=== PATIENT | female | born 1995 | race Caucasian/White ===

== ENCOUNTER → 2020-10-11 18:46 | Observation (INO) ==
[2020-10-11 18:23] LABS: Bacteria,Urine Few per hpf (None-Few); Bilirubin,Urine Negative (Negative); Blood,Urine Negative (Negative); Clarity,Urine Turbid (Clear); Color,Urine Yellow (Yellow); Glucose,Urine (UA) Normal (Normal); Ketones,Urine Negative (Negative); Leukocyte Esterase,Urine Moderate (Negative); Mucus,Urine Few per lpf (None-Few); Nitrite,Urine Negative (Negative); PH,Urine 6.5 pH Units (5.0-8.0); Protein,Urine 30 mg/dL (Neg-Trace); RBC,Urine 0-3 per hpf (0-3); Specific Gravity,Urine 1.024 (1.010-1.025); Squamous Epithelial Cell,Urine Moderate per hpf (None-Few)
== END | disposition home health service (06) ==
LOC: 1NENULAB
PROVIDERS: ADMIT Student in an Organized Health Care Education/Training Program; ATTEND Student in an Organized Health Care Education/Training Program

== ENCOUNTER 2022-04-04 03:48 | Inpatient (IN) ==
[2022-04-04] MEDS ORDERED: Famotidine 20 MG/2 ML VIAL IVP PRN (04:14)
[2022-04-04] MEDS ORDERED: *HR* Nalbuphine 10 MG/ML AMPUL IV PRN (04:14)
[2022-04-04] MEDS ORDERED: Naloxone 0.4 MG/ML INJ IVP PRN ×2 (04:14→06:42)
[2022-04-04] MEDS ORDERED: Ondansetron 4 MG/2 ML VIAL IVP PRN ×2 (04:14→06:42)
[2022-04-04] MEDS ORDERED: Metoclopramide 10 MG/2 ML VIAL IVP PRN (04:14)
[2022-04-04] MEDS ORDERED: Penicillin G Potassium 5,000,000 UNIT in 0.9 % Sodium Chloride Mini Bag 100 ML IVPB ONE (04:19)
[2022-04-04] MEDS ORDERED: Famotidine 20 MG/2 ML VIAL IVP ONE (04:19)
[2022-04-04] MEDS ORDERED: CeFAZolin 2,000 MG/120 ML BAG IVPB ONE (04:19)
[2022-04-04] MEDS ORDERED: miSOPROStoL 25 MCG TABLET PO PRN (04:31)
[2022-04-04 04:42] LABS: Basophils % 0.4 %; Eosinophils # 0.1 K/mcL (0.0-0.6); Eosinophils % 1.2 %; Hemoglobin 12.6 g/dL (11.5-15.4); Immature Granulocytes % 0.6 % (0-4); Lymphocytes # 2.1 K/mcL (0.6-4.6); Lymphocytes % 22.7 %; Mean Corpuscular HGB Conc 34.1 g/dL (31.6-35.5); Mean Corpuscular Hemoglobin 31.7 pg (28.0-33.3); Mean Corpuscular Volume 93.2 fL (83.0-100.0); Mean Platelet Volume 10.1 fL (9.4-12.4); Monocytes # 0.7 K/mcL (0.0-1.3); Monocytes % 6.9 %; Neutrophils # 6.4 K/mcL (1.6-8.9); Platelet Count 213 K/mcL (140-400); Red Blood Count 3.97 M/mcL (3.82-4.97); Red Cell Distribution Width 13.9 % (11.5-14.5); Segmented Neutrophils % 68.2 %; White Blood Count 9.4 K/mcL (4.3-11.1)
[2022-04-04] MEDS: Ringers Solution, Lactated 1,000 ML IVC SCH ×3 (04:43→09:00)
[2022-04-04] MEDS ORDERED: Oxytocin 30 UNIT/503 ML BAG IVC SCH ×2 (04:45→13:43)
[2022-04-04 04:50] LABS: Amphetamine Screen,Urine Negative ng/mL (Cutoff=1000); Barbiturate Screen,Urine Negative ng/mL (Cutoff=200); Benzodiazepines Screen,Urine Negative ng/mL (Cutoff=200); Cannabinoid Screen,Urine Negative ng/mL (Cutoff = 50); Cocaine Screen,Urine Negative ng/mL (Cutoff= 300); Opiate Screen,Urine Negative ng/mL (Cutoff=300); Phencyclidine Screen,Urine Negative ng/mL (Cutoff=25)
[2022-04-04] MEDS ORDERED: Ropivacaine/PF 0.2% 20 ML VIAL EP ONE (06:42)
[2022-04-04] MEDS ORDERED: EPHEDrine 50 MG/ML VIAL IVP PRN (06:42)
[2022-04-04] MEDS ORDERED: *HR* FentaNYL (PF) 100 MCG/2 ML VIAL EP ONE (06:42)
[2022-04-04] MEDS ORDERED: Epidural Premix (fent/bupiv) 110 ML EP SCH (06:45)
[2022-04-04] MEDS ORDERED: Penicillin G Potassium 2,500,000 UNIT/105 ML MLS IVPB SCH (08:30)
[2022-04-04] MEDS ORDERED: Ropivacaine/PF 0.2% 20 ML VIAL ONE (10:12)
[2022-04-04] MEDS ORDERED: *HR* Ropivacaine/PF 0.5% 20 ML VIAL ONE (10:12)
[2022-04-04] MEDS ORDERED: OXYTOCIN/RINGERS LACTATE 10 UNIT/166.6 ML BAG IVC ONE (13:43)
[2022-04-04] MEDS ORDERED: Ondansetron ODT 4 MG TAB.RAPDIS SL PRN (13:43)
[2022-04-04] MEDS ORDERED: Rho Immune Globulin 1,500 UNIT SYRINGE IM PRN (13:43)
[2022-04-04] MEDS ORDERED: Lanolin 7 G OINT...G. TP PRN (13:43)
[2022-04-04] MEDS ORDERED: Measles/Mumps/Rubella Vacc 0.5 ML VIAL SQ PRN (13:43)
[2022-04-04] MEDS ORDERED: Benzocaine/Menthol 56 GM AEROSOL SPRAY TP PRN (13:43)
[2022-04-04] MEDS: Acetaminophen 325 MG TABLET PO SCH ×2 (14:37→20:53)
[2022-04-04] MEDS: Ibuprofen 600 MG TABLET PO SCH ×2 (14:37→20:52)
[2022-04-05] MEDS: Ibuprofen 600 MG TABLET PO SCH ×2 (03:09→08:59)
[2022-04-05] MEDS: Acetaminophen 325 MG TABLET PO SCH ×2 (03:10→08:59)
[2022-04-05 03:45] VITALS: O2SAT 97
[2022-04-05 07:36] VITALS: BP 123/73; PULSE 67; TEMP 97.6
[2022-04-05] MEDS ORDERED: Prenatal Vit/FA 1 EACH TABLET PO SCH (09:00)
== END 2022-04-05 11:15 | disposition home or self-care (01) | DRG 807 ==
LOC: 1NENULAB 03:48 → 1NENUOBS 13:42
PROVIDERS: ADMIT Obstetrics & Gynecology; ATTEND Obstetrics & Gynecology